=== PATIENT | female | born 1970 | race Caucasian/White ===

== ENCOUNTER → 2019-07-23 16:00 | Outpatient (CLI) | payer BC | END | disposition home or self-care (01) | LOC: D.CT 16:00 | PROVIDERS: ATTEND Family Medicine | DX: J06.9 Acute upper respiratory infection, unspecified (principal) ==

== ENCOUNTER → 2019-10-24 14:11 | Outpatient (CLI) | payer BC ==
[2019-10-24 15:06] LABS: HEMATOCRIT 41.6 % (36.0-48.0); HEMOGLOBIN 13.4 g/dL (12-16); MCH 30.6 pg (26.0-34.0); MCHC 32.2 g/dL (31.0-37.0); MEAN PLATELET VOLUME 10.2 fL (7.4-10.4); PLATELET COUNT 326 10x3/uL (130-400); RBC 4.38 10x6/uL (4.00-5.40); RDW 15.3 % (11.5-14.5); WBC 8.6 10x3/uL (4.8-10.8)
[2019-10-24 15:47] LABS: EOSINOPHILS 2 % (0-7); LYMPHOCYTES 57 % (15-50); MONOCYTES 7 % (2-11); NEUTROPHILS 33 % (40-80); PLATELET ESTIMATE NORMAL
== END | disposition home or self-care (01) ==
LOC: D.LABREF 14:11
PROVIDERS: ATTEND Legal Medicine
DX: I10 Essential (primary) hypertension (principal)